=== PATIENT | female | born 1970 | race Caucasian/White ===

== ENCOUNTER 2018-03-29 18:01 | Emergency (ER) | payer OTHER ==
[2018-03-29 18:14] VITALS: BMI 39.3
--- NOTE | 2018-03-29 18:19 | PDOC ---
Rapid Medical Evaluation Chief Complaint: Blood Pressure Problem Time Seen by Provider: 03/29/18 18:14 Medical Evaluation: Allergies Allergy/AdvReac Type Severity Reaction Status Date / Time No Known Allergies Allergy Verified 03/29/18 18:09 03/29/18 18:14 I have performed a brief in-person evaluation of this patient. The patient presents with a chief complaint of: h/o HTN non-compliance on meds for over 6 months BIBA s/p presenting to urgent care with laceration to left index finger and found to have elevated blood pressure of 200/110. pt report chest pressure and pressure behind b/l eyes. Denies SOB, dizziness, sweats, N/V , RODRIGUEZ, CP Pertinent physical exam findings: a&O x 3. heart RRR. chest CTAB. EKG with NSR. laceration to left index finger I have ordered the following: EKG, CMP, CBC, cardiac profile. The patient will proceed to the ED for further evaluation Discharge Disposition - Diagnosis HTN (hypertension) Qualifiers: Hypertension type: essential hypertension Qualified Code(s): I10 - Essential ( primary) hypertension Laceration of left index finger Qualifiers: Encounter type: initial encounter Damage to nail status: without damage Foreign body presence: without foreign body Qualified Code(s): S61.211A - Laceration without foreign body of left index finger without damage to nail, initial encounter - Referrals - Patient Instructions - Post Discharge Activity
--- NOTE | 2018-03-29 18:55 | PDOC ---
History of Present Illness - General Chief Complaint: Blood Pressure Problem Stated Complaint: HYPERTENSIVE Time Seen by Provider: 03/29/18 18:14 - History of Present Illness Initial Comments: The patient is a 47F w/ a history of HTN and med non-compliance who presents for evaluation for of left hand injury. She was seen at an urgent care just [place] and was sent in for further evaluation for concern of hypertensive urgency. Endorses chest pressure, eye pressure. Denies recent fever/chills, RODRIGUEZ, vision changes, SOB, abdominal pain, N/V/C/D. Reports that she was cutting lettuce when she accidentally avulsed her L index finger. Was initially seen at an Urgent Care, wound was dressed w/ gauze. Patient denies tetanus vaccine recently or today. Endorses current mild chest pressure. Denies SOB, RODRIGUEZ, eye pressure/pain, or changes in sensation 03/29/18 18:58 Past History - Past Medical History Allergies/Adverse Reactions: Allergies Allergy/AdvReac Type Severity Reaction Status Date / Time No Known Allergies Allergy Verified 03/29/18 21:07 Home Medications: Ambulatory Orders Cephalexin Monohydrate [Keflex -] 500 mg PO Q6H 7 Days #28 capsule 03/29/18 COPD: No HTN: Yes - Immunization History Immunization Up to Date: Yes - Suicide/Smoking/Psychosocial Hx Smoking History: Never smoked Hx Alcohol Use: No Drug/Substance Use Hx: No Substance Use Type: None Review of Systems - Review of Systems Able to Perform ROS?: Yes Comments:: GENERAL/CONSTITUTIONAL: No fever or chills. No weakness HEAD, EYES, EARS, NOSE AND THROAT: No change in vision. No ear pain or discharge. No sore throat CARDIOVASCULAR: Mild chest pressure; denies SOB GASTROINTESTINAL: No nausea, vomiting, diarrhea or constipation GENITOURINARY: No dysuria, frequency, or change in urination MUSCULOSKELETAL: +L index finger avulsion; Otherwise, no joint or muscle swelling or pain. No neck or back pain SKIN: No rash NEUROLOGIC: No headache, vertigo, loss of consciousness, or change in strength/ sensation ENDOCRINE: No increased thirst. No abnormal weight change HEMATOLOGIC/LYMPHATIC: No anemia, easy bleeding, or history of blood clots ALLERGIC/IMMUNOLOGIC: No hives or skin allergy 03/29/18 20:13 Is the patient limited Hungarian proficient: No *Physical Exam - Vital Signs Last Vital Signs Temp Pulse Resp BP Pulse Ox 98.7 F 96 H 16 189/94 H 100 03/29/18 18:09 03/29/18 18:09 03/29/18 18:09 03/29/18 18:09 03/29/18 18:09 - Physical Exam Comments: GENERAL: Awake, alert, and fully oriented, in no acute distress HEAD: No signs of trauma, normocephalic, atraumatic EYES: PERRLA, EOMI, sclera anicteric, conjunctiva clear ENT: Hearing grossly normal, nares patent, oropharynx clear without exudates. Moist mucosa LUNGS: No distress, speaks full sentences, clear to auscultation bilaterally HEART: Regular rate and rhythm, normal S1 and S2, no murmurs appreciated, peripheral pulses normal and equal bilaterally ABDOMEN: Soft, nontender, normoactive bowel sounds. No guarding, no rebound NEUROLOGICAL: Cranial nerves II through XII grossly intact. Normal speech, normal gait, no focal sensorimotor deficits RUE: Inspection: No erythema or ecchymosis. No tenderness, no obvious abnormalities, no open wounds. Compartments soft and compressible, pain within proportion, no pain to passive stretch Sensation: sensation present to light touch m/r/u n Motor: intact AIN/PIN/Ulnar in hand; 5/5 Wrist flex/ext; 5/5 Elbow flex/ext; 5/ 5 Shoulder ABd,Flex Vascular: 2+ radial pulse palpated, BCR all fingers <2 sec. LUE: Inspection: Distal lateral medial index finger avulsion with 1/2 nail bed involvement; Compartments soft and compressible, pain within proportion, no pain to passive stretch Sensation: sensation present to light touch m/r/u n Motor: intact AIN/PIN/Ulnar in hand; 5/5 Wrist flex/ext; 5/5 Elbow flex/ext; 5/ 5 Shoulder ABd,Flex Vascular: 2+ radial pulse palpated, BCR all fingers <2 sec. 03/29/18 20:13 Moderate Sedation - Procedure Monitoring Vital Signs: Procedure Monitoring Vital Signs Temperature 98.7 F 03/29/18 18:09 Pulse Rate 96 H 03/29/18 18:09 Respiratory Rate 16 03/29/18 18:09 Blood Pressure 189/94 H 03/29/18 18:09 O2 Sat by Pulse Oximetry (%) 100 03/29/18 18:09 ED Treatment Course - LABORATORY CBC & Chemistry Diagram: 03/29/18 19:50 03/29/18 19:50 Medical Decision Making - Medical Decision Making The patient is a 47F w/ a history of uncontrolled HTN who presents for evaluation of a L index finger avulsion and concern for HTN urgency ED Course CMP, CBC, cardiac enzymes ECG CXR Received PO HTN meds at Urgent Care, will recheck 03/29/18 19:23 Hand XR Digital block to clean avulsion, re-dressed w/ bacitracin/xeroform/gauze ECG w/ sinus tach CXR w/ poor inspiratory effort 03/29/18 19:59 Repeat BP 129/93 Reports resolution of symptoms 03/29/18 20:11 No leukocytosis No anemia No ANNA MARIE LFTs wnl Trop I neg 03/29/18 21:15 Hand XR w/o foreign body, fx Plan for D/C w/ PCP and Hand f/u Discharge instructions, wound care, and return precautions given Rx for Keflex for 7d sent to pt's pharmacy Plan discussed w/ patient who verbalized understanding and is in agreement Dispo: home 03/29/18 21:25 *DC/Admit/Observation/Transfer Diagnosis at time of Disposition: Avulsion of fingernail of left hand HTN (hypertension) Qualifiers: Hypertension type: essential hypertension Qualified Code(s): I10 - Essential ( primary) hypertension - Discharge Dispostion Disposition: HOME Condition at time of disposition: Improved Decision to Admit order: No - Prescriptions Prescriptions: Cephalexin Monohydrate [Keflex -] 500 mg PO Q6H 7 Days #28 capsule - Referrals Referrals: Shen Howe MD [Staff Physician] - Joanne Gusman [Primary Care Provider] - [facility] [place] [facility] [place] [Provider Group] Priyanka Palomo MD [Staff Physician] - - Patient Instructions Printed Discharge Instructions: DI for Nail Avulsion Injury Additional Instructions: You were seen in the Emergency Department today for evaluation of high blood pressure and a left index finger avulsion. For would care, be sure to wash the are every day with soap and running water. Pat dry. Place bacitracin, xeroform, and gauze over the wound. Once the dressing is placed, keep it dry. Review the handout provided at discharge. Continue to take the medication prescribed by Urgent Care. Return to the Emergency Department if you develop fevers/chills, worsening pain , redness around the wound, purulent discharge, or any new/concerning symptoms. - Post Discharge Activity Forms/Work/School Notes: Back to Work
--- NOTE | 2018-03-29 19:10 | PDOC ---
Attending Attestation - HPI HPI: 03/29/18 19:42 The patient is a 47 year old female with a significant past medical history of HTN who presents to the ED, sent by Urgent Care, for high blood pressure and injury earlier today. The patient states she was cutting lettuce when the knife slipped and cut her left index finger. Patient went to Urgent Care and had high blood pressure and an episode of eye pain and chest pressure, now resided. Patient was sent to the ED by Urgent care for high blood pressure. Patient states her tetanus shot is not up to date. Denies fever or chills. Denies nausea or vomiting. Denies dysuria or change in urinary output. Denies any other symptoms. - Physicial Exam PE: 03/29/18 19:43 Constitutional: Awake, alert, oriented. No acute distress. Head: Normocephalic. Atraumatic Eyes: PERRL. EOMI. Conjunctivae are not pale. ENT: Mucous membranes are moist and intact. Posterior pharynx without exudates or erythema. Uvula midline. Neck: Supple. Full ROM. No lymphadenopathy. Cardiovascular: Regular rate. Regular rhythm. S1, S2 regular. Distal pulses are 2+ and symmetric. Pulmonary/Chest: No evidence of respiratory distress. Clear to auscultation bilaterally No wheezing, rales or rhonchi. Abdominal: + obese. Soft and non-distended. There is no tenderness. No rebound, guarding or rigidity. No organomegaly. No palpable masses. Good bowel sounds. Back: No CVA tenderness. Musculoskeletal: + left hand, non dominant, there is an avulsion at the distal tip of index finger through the nail bed. No edema. No cyanosis. No clubbing. Full range of motion in all extremities. No calf tenderness. Radial/ pedal pulses are intact and 2+ bilaterally Skin: Skin is warm and dry. No petechiae. No purpura. Neurological: Alert and oriented to person, place, and time. Cranial nerves II -XII are grossly intact. Normal speech. Strength is grossly symmetric. No sensory deficits. Psychiatric: Good eye contact. Normal interaction, affect and behavior. <Jeri Abraham - Last Filed: 03/29/18 19:42> - Resident Resident Name: David Hogan - ED Attending Attestation I have performed the following: I have examined & evaluated the patient, The case was reviewed & discussed with the resident, I agree w/resident's findings & plan, Exceptions are as noted - Medical Decision Making 03/29/18 19:10 I, Dr. Tiny Barnard DO, attest that this document has been prepared under my direction and personally reviewed by me in its entirety. I further attest, that it accurately reflects all work, treatment, procedures and medical decision -making performed by me. 03/29/18 19:56 a/p: 47yo female with hx of HTN but noncompliant with meds secondary to insurance issues presents for eval of blurred vision x months and avulsion of L index finger -will update tetanus -needs xray hand -will send labs, ua, ekg, cxr -pt received BP meds at the urgent care -will monitor and reassess 03/29/18 19:58 cxr poor inspiratory film 03/29/18 21:19 trop negative bp improved wound cleaned by the resident 03/29/18 21:38 no acute fx seen on hand xray will give abx for avulsion wound on hand local wound care <Tiny Barnard - Last Filed: 03/29/18 21:39> Heart Score/ECG Review - ECG Intrepretation Comment:: 03/29/18 19:58 sinus at 94, nl axis, nl interval, t wave inversions III which are nonspecific <Tiny Barnard - Last Filed: 03/29/18 21:39> Attestations - Attestations 03/29/18 19:43 Documentation prepared by Jeri Abraham, acting as medical transcriber for Tiny Barnard DO <Jeri Abraham - Last Filed: 03/29/18 19:42>
[2018-03-29] MEDS ORDERED: DIPHTH,PERTUSS(ACELL),TET 0.5 ML DISP.SYRIN IM ONE ×2 (19:11→20:02)
[2018-03-29] MEDS ORDERED: hydrALAZINE HCL 20 MG/ML VIAL IVPUSH ONE (19:17)
[2018-03-29] MEDS ORDERED: amLODIPine BESYLATE 10 MG TABLET (FP) PO ONE (19:18)
[2018-03-29 19:20] VITALS: PULSE 89; TEMP 99.1
[2018-03-29] MEDS ORDERED: LIDOCAINE HCL 1%, 10 MG/ML (50 mL VIAL) INF ONE (19:42)
[2018-03-29] MEDS ORDERED: LIDOCAINE HCL 1%, 10 MG/ML (20ML VIAL) ONE (19:50)
[2018-03-29 20:00] LABS: BASO % 0.7 % (0-2.0); EOS % 1.5 % (0-4.5); HEMATOCRIT 37.4 % (32.4-45.2); HEMOGLOBIN 13.3 GM/dL (10.7-15.3); LYMPH % 19.9 % (8-40); MCH 31.8 pg (25.7-33.7); MCHC 35.5 g/dl (32.0-36.0); MEAN CELL VOLUME 89.8 fl (80-96); MEAN PLT VOLUME 7.8 fl (7.5-11.1); MONO % 5.7 % (3.8-10.2); NEUT % 72.2 % (42.8-82.8); PLATELET COUNT 341 K/MM3 (134-434); RBC 4.16 M/mm3 (3.60-5.2); RDW 12.7 % (11.6-15.6); WHITE BLOOD COUNT 8.4 K/mm3 (4.0-10.0)
[2018-03-29 20:32] LABS: ALBUMIN 3.7 g/dl (3.4-5.0); ALK PHOS 83 U/L (45-117); ANION GAP 11 MMOL/L (8-16); BILIRUBIN,TOTAL 0.2 mg/dL (0.2-1); BLOOD UREA NITROGEN 22 mg/dL (7-18); CHLORIDE 106 mmol/L (98-107); CO2 23 mmol/L (21-32); CREATININE 0.8 mg/dL (0.55-1.3); GLUCOSE,RANDOM 100 mg/dL (74-106); POTASSIUM 3.9 mmol/L (3.5-5.1); SGOT/AST 17 U/L (15-37); SGPT/ALT 23 U/L (13-61); SODIUM 139 mmol/L (136-145); TOT PROT 7.9 g/dl (6.4-8.2)
[2018-03-29] MEDS ORDERED: CEPHALEXIN MONOHYDRATE 500 MG CAPSULE (UD) PO ONE (21:38)
[2018-03-29] MEDS ORDERED: BACITRACIN 0.9 GM PACKET ONE (21:51)
[2018-03-29] MEDS ORDERED: CEPHALEXIN MONOHYDRATE 500 MG CAPSULE (UD) ONE (22:07)
[2018-03-29 22:36] VITALS: BP 124/86
--- NOTE | 2018-03-31 17:25 | EKG ---
Test Reason : Blood Pressure : / mmHG Vent. Rate : 094 BPM Atrial Rate : 094 BPM P-R Int : 142 ms QRS Dur : 084 ms QT Int : 356 ms P-R-T Axes : 038 048 008 degrees QTc Int : 445 ms NORMAL SINUS RHYTHM NORMAL ECG NO PREVIOUS ECGS AVAILABLE Confirmed by MD ARMAND, YEAD ([id number]) on 03/31/2018 5:24:45 PM Referred By: Confirmed By:EYAD ACUNA MD
== END 2018-03-29 22:15 | disposition home or self-care (01) ==
LOC: JER 18:01
PROC: 3E0234Z Introduction of Serum, Toxoid and Vaccine into Muscle, Percutaneous Approach (ICD-10-PCS; principal; 2018-03-29)
DX: I10 Essential (primary) hypertension (principal); S61.211A Laceration without foreign body of left index finger without damage to nail, initial encounter; W26.0XXA Contact with knife, initial encounter; Y93.G1 Activity, food preparation and clean up; Y92.030 Kitchen in apartment as the place of occurrence of the external cause; Y99.8 Other external cause status
CPT/HCPCS: 36415; 71045-TC-FY; 73130-TC-LT-FY; 80053; 82550; 82553; 84484; 85025; 90715; 93005; 93010; 99283-25

== ENCOUNTER 2022-07-29 16:18 | Emergency (ER) | payer OTHER ==
[2022-07-29 16:25] VITALS: RESP 18; BMI 41.1
[2022-07-29 19:12] VITALS: TEMP 98.6
[2022-07-29 19:34] LABS: BASO % 0.6 % (0-2.0); EOS % 1.7 % (0-4.5); HEMATOCRIT 33.9 % (32.4-45.2); HEMOGLOBIN 11.2 GM/dL (10.7-15.3); LYMPH % 23.2 % (8-40); MCH 28.2 pg (25.7-33.7); MEAN CELL VOLUME 85.4 fl (80-96); MONO % 6.1 % (3.8-10.2); NEUT % 68.4 % (42.8-82.8); PLATELET COUNT 333 10^3/uL (134-434); RBC 3.97 M/mm3 (3.60-5.2); RDW 13.9 % (11.6-15.6)
[2022-07-29] MEDS ORDERED: VALSARTAN 160 MG TABLET PO ONE (19:38)
[2022-07-29 19:40] LABS: INR 1.03 (0.83-1.09)
[2022-07-29 19:42] LABS: ACTIVATED PTT 27.3 SECONDS (25.2-36.5)
[2022-07-29 19:55] LABS: CALCIUM 9.1 mg/dL (8.5-10.1)
[2022-07-29 19:56] LABS: ALBUMIN 3.4 g/dl (3.4-5.0); BLOOD UREA NITROGEN 19.4 mg/dL (7-18)
[2022-07-29 19:59] LABS: CREATININE 0.5 mg/dL (0.55-1.3)
[2022-07-29 20:00] LABS: BILIRUBIN,TOTAL 0.2 mg/dL (0.2-1); TOT PROT 7.5 g/dl (6.4-8.2)
[2022-07-29 20:04] LABS: N-TERMINAL BNP 59.1 pg/ml (5-125)
[2022-07-29] MEDS ORDERED: VALSARTAN 80 MG TABLET ONE (20:18)
[2022-07-29] MEDS ORDERED: KETOROLAC TROMETHAMINE 15 MG/ML VIAL IVPUSH ONE (23:11)
[2022-07-29] MEDS ORDERED: KETOROLAC TROMETHAMINE 15 MG/ML VIAL ONE (23:31)
[2022-07-29 23:38] VITALS: BP 142/90; PULSE 82
== END 2022-07-30 00:21 | disposition home or self-care (01) ==
LOC: JER 16:18
PROC: 3E0333Z Introduction of Anti-inflammatory into Peripheral Vein, Percutaneous Approach (ICD-10-PCS; principal; 2022-07-29)
DX: M25.561 Pain in right knee (principal); M79.604 Pain in right leg; I10 Essential (primary) hypertension; Z20.822 Contact with and (suspected) exposure to COVID-19
CPT/HCPCS: 0241U-QW; 36415; 70450-TC; 71045-TC-FY; 71275-TC; 74174-TC; 80053; 83880; 84484; 85025; 85610; 85730; 93005; 93010; 93970-TC; 99285-25; Q9967